=== PATIENT | male | born 1940 | race Caucasian/White ===

== ENCOUNTER 2020-02-05 23:47 | Inpatient (IN) | payer MEDICARE, BC ==
[~2020-02-05] VITALS: Ht 162.6 cm; Wt 55.3 kg
--- NOTE | 2020-02-05 22:00 | NUR ---
Received admission report from [facility] nurse.
--- NOTE | 2020-02-06 | NUR ---
Admitted patient from [facility] via rney, awake, alert and oriented X2-3. Routine admission care done. Initial plan of care initiated.
[2020-02-06 00:10] VITALS: BP 119/62
[2020-02-06] MEDS ORDERED: ACET-2154 PO ×2 (01:10→01:36)
[2020-02-06] MEDS ORDERED: ACET-73 PO ×2 (01:10→01:36)
[2020-02-06] MEDS ORDERED: FERR325T24 PO (01:33)
[2020-02-06] MEDS ORDERED: AMIN30LI26 PO (01:33)
[2020-02-06] MEDS ORDERED: PANT40TA2 PO (01:33)
[2020-02-06] MEDS ORDERED: MULT-213 PO (01:33)
[2020-02-06] MEDS ORDERED: MAG30ORA2 PO (01:33)
[2020-02-06] MEDS ORDERED: MAGN400O6 PO (01:33)
[2020-02-06] MEDS ORDERED: BISA5TAB10 PO (01:33)
[2020-02-06] MEDS ORDERED: ASPI81TA31 PO (01:33)
[2020-02-06] MEDS ORDERED: HYDROCODONE/APAP 5-325MG TABLET PO PRN (02:00)
[2020-02-06] MEDS ORDERED: MAGNESIUM HYDROXIDE 30 ML LIQUID UDC PO PRN ×2 (02:00→13:15)
[2020-02-06] MEDS ORDERED: ACETAMINOPHEN 325 MG TABLET PO PRN ×2 (02:00→13:15)
[2020-02-06] MEDS ORDERED: ZOLPIDEM 5 MG TABLET PO PRN (02:00)
[2020-02-06] MEDS ORDERED: ONDANSETRON 4 MG/2 ML VIAL IV PRN (02:00)
[2020-02-06] MEDS ORDERED: Z GUARD REMEDY PASTE 57 GM TUBE TOP PRN (02:00)
[2020-02-06] MEDS: IV NS 1000 ML 1,000 ML IV PRN (03:14)
--- NOTE | 2020-02-06 03:45 | NUR ---
Patient trying to get out of bed several times with unsteady gait. Instructed patient to call if he wants to go to the bathroom. Urinal was given, placed at bedside, Call light within easy reach but patient so forgetful. Close visual and physical supervision rendered. Charge nurse and mitigation supervisor made aware. Noted some rectal old blood drip in small to moderate amount. No anal/rectal skin breakdown noted. Good dayna care rendered. Will continue to monitor.
[2020-02-06 04:00] VITALS: BP 120/57
--- NOTE | 2020-02-06 05:52 | NUR ---
Shift End Report: VS stable. No complaint of pain presented. Non compliant to plan of care at times, forgetful. Continue close visual and physical supervision for safety. All needs attended and met. No significant event reported all night. Continue current plan of care.
[2020-02-06] MEDS: PANTOPRAZOLE SODIUM 40 MG VIAL IV SCH (09:29)
[2020-02-06 09:34] LABS: BASOPHILS # (AUTO) 0.1 K/uL (0.0-8.0); BASOPHILS % (AUTO) 0.8 % (0.0-2.0); EOSINOPHILS # (AUTO) 0.4 K/uL (0.0-0.7); EOSINOPHILS % (AUTO) 3.1 % (0.0-7.0); HEMATOCRIT 25.6 % (36.7-47.1); HEMOGLOBIN 8.3 g/dL (12.5-16.3); LYMPHOCYTES # (AUTO) 2.3 K/uL (20.0-40.0); LYMPHOCYTES % (AUTO) 18.2 % (20.5-51.5); MEAN CORPUSCULAR HEMOGLOBIN 28.6 uug (23.8-33.4); MEAN CORPUSCULAR HGB CONC 33 g/dL (32.5-36.3); MONOCYTES # (AUTO) 1.1 K/uL (2.0-10.0); MONOCYTES % (AUTO) 8.8 % (0.0-11.0); NEUTROPHILS # (AUTO) 8.7 K/uL (1.8-8.9); NEUTROPHILS % (AUTO) 69.1 % (38.5-71.5); PLATELET COUNT (AUTO) 541 K/uL (152-348); RED BLOOD CELL COUNT(AUTO) 2.91 MIL/uL (4.06-5.63); WHITE BLOOD COUNT (AUTO) 12.6 K/uL (3.6-10.2)
[2020-02-06 09:38] LABS: BILIRUBIN,TOTAL 0.4 mg/dL (0.2-1.0); CREATININE 1.2 mg/dL (0.6-1.3); PHOSPHOROUS 2.9 mg/dL (2.5-4.9); POTASSIUM 3.9 mmol/L (3.5-5.1); TOTAL PROTEIN, SERUM 7.2 g/dL (6.4-8.2)
--- NOTE | 2020-02-06 12:07 | NUR ---
DR WHITLEY SURGEON CALLED AND GAVE THE ORDER FOR INSERTION OF PORTACATH, CALLED [facility], PATIENT BORTHER FOR CONSENT, PER BROTHER HE SAID HE WANTS TO TALK TO SURGEON, SURGERY NURSES MADE AWARE
[2020-02-06 12:21] VITALS: BP 138/57
[2020-02-06] MEDS ORDERED: BISACODYL 5 MG TABLET.DR PO PRN (13:15)
[2020-02-06] MEDS ORDERED: MAG HYDROX/AL HYDROX/SIMETH 30 ML LIQUID UDC PO PRN (13:45)
--- NOTE | 2020-02-06 14:00 | NUR ---
PATIENT IS TAKEN TO SURGERY, PATIENT SIGNED THE CONSENT, EXPLAINED BY DR WHITLEY, PATIENT IS ALERT, AWAKE, NO DISTRESS NOTED.
[2020-02-06] MEDS ORDERED: LIDOCAINE HCL 1% 20 ML VIAL ONE (15:22)
[2020-02-06] MEDS ORDERED: HEPARIN/NS 500 ML ONE (15:35)
[2020-02-06] MEDS ORDERED: HEPARIN SODIUM,PORCINE 1,000 UNITS/ML VIAL ONE (15:59)
--- NOTE | 2020-02-06 16:44 | NUR ---
PATIENT IS STILL IN SURGERY, FOR INSERTION OF SAUL CATH
--- NOTE | 2020-02-06 17:19 | NUR ---
PATIENT CAME BACK FROM SURGERY, IN BED, AWAKE, VERBALLY RESPONSIVE, SAUL CATH INTACT AT RIGHT UPPER CHEST. NO SIGNS OR SYMPTOMS OF BLEEDING NOTED AT THIS TIME, NO DISTRESS NOTED
[2020-02-06 17:33] VITALS: BP 134/75
--- NOTE | 2020-02-06 17:34 | NUR ---
PATIENT DIET WILL BE ADVANCED, PATIENT DRANK APPLE JUICE NO SIGNS AND SYMPTOMS OF ASPIRATION NOTED, SUCH NO COUGH NOTED
--- NOTE | 2020-02-06 18:15 | NUR ---
PATIENT IS INTERMITTENTLY AWAKE AND IN SLEEP, NO SOB, RESP EVEN NONLABORED, O2 SAT AT ROOM AIR IS 100%. NO DISTRESS NOTED
--- NOTE | 2020-02-06 18:52 | NUR ---
CALLED DR ISBELL FOR PSYCH EVAL PER DR LUO CALL DR ENNIS IN [facility]
--- NOTE | 2020-02-06 20:00 | NUR ---
Received patient in bed watching TV. Patient is calm and cooperative. Alert and oriented times 3, forgetful. No signs of distress, no SOB, denies any pain. No skin breakdown noted, skin dry and intact. Shawn cath located on the right upper chest wall, no drainage or signs of infection. Left AC running 75cc/hr NS, IV intact. All safety measure in place, bed alarm, x2 rails up, and bed locked and lowered to lowest position. Call light within patient reach. Will continue to monitor.
[2020-02-06 20:09] VITALS: BP 129/53
[2020-02-06] MEDS: FERROUS SULFATE 325 MG TABEC PO SCH (20:56)
--- NOTE | 2020-02-06 21:40 | NUR ---
Patient is resting. Patient took medication as tolerable with orange juice. No complaints noted. Patient trying to get out of bed multiple times. Instructed patient to call if he wants to go to the bathroom. Urinal is within patient reach placed at bedside, Call light within reach. Will continue to monitor
[2020-02-07] VITALS (9 sets, daily range): BP systolic 107–139; BP diastolic 40–66
[2020-02-07] MEDS: IV NS 1000 ML 1,000 ML IV PRN ×2 (01:06→18:03)
--- NOTE | 2020-02-07 06:02 | NUR ---
Shift End Report: VS stable. Patient is AxOx3, confused at times, flight of ideas/speech. Patient stated " how are we gonna escape when its so dark, who is gonna take the fire out." No complaint of pain presented. Patient received Ambien at 0140 to help sleep, was effective patient slept through the night with no complaints. Continue close visual and physical supervision for safety, tries to get out of bed without assistance. All needs attended and met. No significant event reported all night. Continue current plan of care. will endorse next shift.
--- NOTE | 2020-02-07 06:50 | NUR ---
Patients IV on the LAC leaking, removed and new IV insertion on patients right wrist 22G running 75cclhr NS.
[2020-02-07 07:20] LABS: BASOPHILS % (AUTO) 0.2 % (0.0-2.0); HEMATOCRIT 23.4 % (36.7-47.1); HEMOGLOBIN 7.8 g/dL (12.5-16.3); LYMPHOCYTES # (AUTO) 2.2 K/uL (20.0-40.0); MEAN CORPUSCULAR HEMOGLOBIN 29.1 uug (23.8-33.4); MEAN CORPUSCULAR HGB CONC 33 g/dL (32.5-36.3); MEAN CORPUSCULAR VOLUME 87.4 fL (73.0-96.2); MONOCYTES # (AUTO) 0.8 K/uL (2.0-10.0); MONOCYTES % (AUTO) 6.2 % (0.0-11.0); NEUTROPHILS % (AUTO) 76.6 % (38.5-71.5); PLATELET COUNT (AUTO) 481 K/uL (152-348); RED BLOOD CELL COUNT(AUTO) 2.68 MIL/uL (4.06-5.63); WHITE BLOOD COUNT (AUTO) 13.1 K/uL (3.6-10.2)
[2020-02-07 07:30] LABS: CREATININE 1.1 mg/dL (0.6-1.3); MAGNESIUM 1.9 mg/dL (1.8-2.4); PHOSPHOROUS 2.8 mg/dL (2.5-4.9); POTASSIUM 4.1 mmol/L (3.5-5.1)
[2020-02-07] MEDS ORDERED: PANTOPRAZOLE SODIUM 40 MG TABLET.DR PO SCH (07:30)
--- NOTE | 2020-02-07 08:00 | NUR ---
Received patient in Bed, awake and verbally responsive. No signs of distress noted. No SOB. No complain of Pain or discomfort. IVF infusing well. Kept clean ans comfortable. Will continue to monitor.
[2020-02-07] MEDS: PANTOPRAZOLE SODIUM 40 MG VIAL IV SCH (08:19)
[2020-02-07] MEDS: PROTEIN SUPPLEMENT (PROSTAT) 30 ML LIQUID PO SCH (08:20)
[2020-02-07] MEDS: MULTIVIT, IRON, MIN NO. 8, FA TABLET PO SCH (08:20)
[2020-02-07] MEDS: FERROUS SULFATE 325 MG TABEC PO SCH ×2 (08:20→20:35)
[2020-02-07] MEDS: ASPIRIN 81 MG TAB.CHEW PO SCH (08:20)
[2020-02-07] MEDS ORDERED: Medication Not On Formulary EA (Multivitamins W-Minerals (Multivitamin With Minerals) 1 PO SCH (09:00)
--- NOTE | 2020-02-07 09:00 | NUR ---
Called [facility] and requested the covid 19 result, spoke with Holly, she said patient had a Negative covid 19 result, Rosa Isela BLACKWOOD made aware.
[2020-02-07 10:42] LABS: *BILIRUBIN,URIN NEGATIVE (NEGATIVE); *BLOOD, URINE 1+ (NEGATIVE); *CLARITY,URINE SLIGHTLY CLOUDY (CLEAR); *COLOR,URINE YELLOW (YELLOW); *KETONES,URINE NEGATIVE (NEGATIVE); *UROBILINOGEN,URINE 0.2 E.U./dl (NORMAL); LEUKOCYTE ESTERASE ,URINE 3+ (NEGATIVE); NITRITE, URINE NEGATIVE (NEGATIVE); PH,URINE 5.5 (5.0-8.0); UGLUCOSE NEGATIVE (NEGATIVE)
[2020-02-07 10:58] LABS: BACTERIA,URINE NONE SEEN /HPF (NONE SEEN); SQUAMOUS EPITHELIAL CELL,UR FEW /HPF (NONE SEEN); WBC,URINE TNTC /HPF (0-3)
[2020-02-07] MEDS ORDERED: CEPH-570 PO (11:04)
--- NOTE | 2020-02-07 14:56 | NUR ---
Transfused 1PRBC, tolerated well. No Adverse Reaction noted.
[2020-02-07] MEDS: CEphaleXIN 500 MG CAPSULE PO SCH (17:07)
--- NOTE | 2020-02-07 18:11 | NUR ---
Patient in bed, awake and verbally responsive, forgetful. No signs of distress noted. No SOB. Saturating 99% on Room Air. No complain of pain or discomfort. 1PRBC transfused, tolerated well. No adverse reaction noted. All due medication given as ordered. Kept the call light within easy reach. Will endorse to Oncoming Nurse.
--- NOTE | 2020-02-07 19:00 | NUR ---
PATIENT ALERT ORIENTED, NO SO NO CHEST PAIN. PATIENT HAS NO COMPLAIN OF PAIN AT THIS TIME. CALL LIGHT WITHIN REACH. CONT TO MONITOR.
--- NOTE | 2020-02-08 00:22 | NUR ---
PATIENT HAS EPISODE OF RECTAL BLEEDING IN MODERATE AMOUNT, DR. WHITLEY WAS NOTIFIED WITH NO NEW ORDER, STATED THAT WOULD BE NORMAL FOR HIM. CONT TO MONITOR.
[2020-02-08 04:00] VITALS: BP 101/68
--- NOTE | 2020-02-08 05:19 | NUR ---
PATIENT SLEPT MOST OF THE NIGHT, NO SOB NO CHEST PAIN. PATIENT HAS NO COMPLAIN OF PAIN AT THIS TIME. PATIENT HAS ONE MORE TIME OF RECTAL BLEEDING IN SMALL AMOUNT, PATIENT WAS KEPT CLEAN AND DRY. ASSISTED WITH TOILETING. PATIENT WAS CONTINUE TO MONITOR.
[2020-02-08 06:36] LABS: BASOPHILS # (AUTO) 0.1 K/uL (0.0-8.0); BASOPHILS % (AUTO) 0.7 % (0.0-2.0); EOSINOPHILS # (AUTO) 0.3 K/uL (0.0-0.7); EOSINOPHILS % (AUTO) 2.7 % (0.0-7.0); HEMATOCRIT 29.3 % (36.7-47.1); HEMOGLOBIN 9.7 g/dL (12.5-16.3); LYMPHOCYTES # (AUTO) 2.8 K/uL (20.0-40.0); LYMPHOCYTES % (AUTO) 23.3 % (20.5-51.5); MEAN CORPUSCULAR HGB CONC 33 g/dL (32.5-36.3); MEAN CORPUSCULAR VOLUME 87.8 fL (73.0-96.2); MONOCYTES # (AUTO) 1.2 K/uL (2.0-10.0); MONOCYTES % (AUTO) 10.3 % (0.0-11.0); NEUTROPHILS # (AUTO) 7.4 K/uL (1.8-8.9); PLATELET COUNT (AUTO) 483 K/uL (152-348); RED BLOOD CELL COUNT(AUTO) 3.34 MIL/uL (4.06-5.63); WHITE BLOOD COUNT (AUTO) 11.8 K/uL (3.6-10.2)
[2020-02-08 06:57] LABS: CREATININE 1.2 mg/dL (0.6-1.3); MAGNESIUM 1.9 mg/dL (1.8-2.4); PHOSPHOROUS 2.6 mg/dL (2.5-4.9)
[2020-02-08] MEDS ORDERED: PANTOPRAZOLE SODIUM 40 MG TABLET.DR PO SCH (07:00)
[2020-02-08] MEDS: IV NS 1000 ML 1,000 ML IV PRN (07:28)
[2020-02-08] MEDS: MULTIVIT, IRON, MIN NO. 8, FA TABLET PO SCH (08:14)
[2020-02-08] MEDS: FERROUS SULFATE 325 MG TABEC PO SCH (08:14)
[2020-02-08] MEDS: CEphaleXIN 500 MG CAPSULE PO SCH ×2 (08:14→16:31)
[2020-02-08] MEDS: ASPIRIN 81 MG TAB.CHEW PO SCH (08:14)
[2020-02-08] MEDS: PROTEIN SUPPLEMENT (PROSTAT) 30 ML LIQUID PO SCH (08:15)
[2020-02-08] MEDS ORDERED: PANTOPRAZOLE SODIUM 40 MG VIAL IV SCH (09:00)
[2020-02-08 12:00] VITALS: BP 139/63
[2020-02-08 16:11] VITALS: BP 122/55
--- NOTE | 2020-02-08 19:11 | NUR ---
dc orders received noted and carried out dc instruction and rn report given to the snf,amie jeong per md orders pt left the facility via ambulances in stable condition
[2020-02-08] MEDS ORDERED: SEVOFLURANE 250 ML BOTTLE IH ONE (19:14)
[2020-02-08] MEDS ORDERED: ONDANSETRON 4 MG/2 ML VIAL IV ONE (19:14)
[2020-02-08] MEDS ORDERED: VECURONIUM BROMIDE 10 MG VIAL IV ONE (19:14)
[2020-02-08] MEDS ORDERED: IV NORMAL SALINE 1000 ML BAG IV ONE (19:14)
[2020-02-08] MEDS ORDERED: DEXAMETHASONE SOD PHOSPHATE 4 MG INJ IV ONE (19:14)
[2020-02-08] MEDS ORDERED: GLYCOPYRROLATE 0.2 MG/ML VIAL IJ ONE (19:14)
[2020-02-08] MEDS ORDERED: LIDOCAINE 1% 30 ML VIAL INJ ONE (19:14)
[2020-02-08] MEDS ORDERED: CEFAZOLIN 1 G VIAL IM ONE (19:14)
[2020-02-08] MEDS ORDERED: SUCCINYLCHOLINE CHLORIDE 200 MG/10 ML VIAL IV ONE (19:14)
[2020-02-08] MEDS ORDERED: HEPARIN SODIUM,PORCINE 1,000 UNITS/ML VIAL IV ONE (19:14)
[2020-02-08] MEDS ORDERED: NEOSTIGMINE METHYLSULFATE 10 MG/10 ML VIAL IM ONE (19:14)
== END 2020-02-08 19:15 | DRG 375 ==
LOC: MEDSURG3 23:47
PROVIDERS: ADMIT Registered Nurse; ATTEND Registered Nurse
PROC: 0JH63WZ Insertion of Totally Implantable Vascular Access Device into Chest Subcutaneous Tissue and Fascia, Percutaneous Approach (ICD-10-PCS; 2020-02-06)
PROC: 02HV33Z Insertion of Infusion Device into Superior Vena Cava, Percutaneous Approach (ICD-10-PCS; 2020-02-06)
PROC: B548ZZA Ultrasonography of Superior Vena Cava, Guidance (ICD-10-PCS; 2020-02-06)
PROC: 30233N1 Transfusion of Nonautologous Red Blood Cells into Peripheral Vein, Percutaneous Approach (ICD-10-PCS; principal; 2020-02-07)
DX: C21.8 Malignant neoplasm of overlapping sites of rectum, anus and anal canal (principal); K92.2 Gastrointestinal hemorrhage, unspecified; N39.0 Urinary tract infection, site not specified; N17.9 Acute kidney failure, unspecified; E44.1 Mild protein-calorie malnutrition; E83.52 Hypercalcemia; F41.9 Anxiety disorder, unspecified; E88.09 Other disorders of plasma-protein metabolism, not elsewhere classified; R79.89 Other specified abnormal findings of blood chemistry; D50.9 Iron deficiency anemia, unspecified; N18.9 Chronic kidney disease, unspecified; I12.9 Hypertensive chronic kidney disease with stage 1 through stage 4 chronic kidney disease, or unspecified chronic kidney disease; D72.829 Elevated white blood cell count, unspecified; Z68.20 Body mass index [BMI] 20.0-20.9, adult; D50.0 Iron deficiency anemia secondary to blood loss (chronic); Z79.82 Long term (current) use of aspirin; K82.8 Other specified diseases of gallbladder
CPT/HCPCS: 36415; 71045; 83735; 84100; 85025; 86850; 86900; 86901; 86920; 87086; A4649; A4663; C9113; G0378; J0330; J0690; J1100; J1644; J2001; J2405; J2710; J3490; J7030; J7050; P9016-BL; P9021